=== PATIENT | female | born 1995 | race Caucasian/White ===

== ENCOUNTER 2017-01-25 19:15 | Emergency (ER) | payer BC ==
[2017-01-25 19:19] VITALS: BP 151/98; PULSE 57; TEMP 98.6; BMI 28.1
--- NOTE | 2017-01-25 19:53 | PDOC ---
History of Present Illness - General History Source: Patient Exam Limitations: No Limitations - History of Present Illness Initial Comments: 01/25/17 20:20 The patient is a 21 year old female, with no significant past medical history, who presents to the emergency department with chest pain, shortness of breath, headache and nausea onset yesterday. She reports that she went to urgent care and had blood work done, which revealed a positive D-dimer, She describes her chest pain as mild, without radiation. She notes that her pain is exacerbated when she takes a deep breath. She describes her headache as localized in the front of her headache, ranging from mild to moderate, without radiation or modifying factors. She denies any recent travel or control use. She reports that her mother has a history of migraines. The patient denies dizziness, fever, chills, nausea, vomit, diarrhea and constipation. Denies dysuria, frequency, urgency and hematuria. LMP: 3 weeks ago and regular Allergies: None Past surgical history: None reported Social history: Social alcohol use. No tobacco or drug use reported <Teddy Richards - Last Filed: 01/25/17 20:20> <Bri Thomas - Last Filed: 01/26/17 04:46> - General Chief Complaint: Chest Pain Stated Complaint: chest pain/sob Time Seen by Provider: 01/25/17 19:17 Past History <Teddy Richards - Last Filed: 01/25/17 20:20> - Past Medical History Other medical history: denies - Psycho/Social/Smoking Cessation Hx Anxiety: No Suicidal Ideation: No Smoking History: Never smoked Hx Alcohol Use: Yes Drug/Substance Use Hx: No Substance Use Type: Alcohol <Bri Thomas - Last Filed: 01/26/17 04:46> - Past Medical History Allergies/Adverse Reactions: Allergies Allergy/AdvReac Type Severity Reaction Status Date / Time No Known Allergies Allergy Verified 01/25/17 19:16 Home Medications: Ambulatory Orders NK [No Known Home Medication] 01/25/17 Review of Systems - Review of Systems Able to Perform ROS?: Yes Comments:: 01/25/17 20:20 GENERAL/CONSTITUTIONAL: No fever or chills. No weakness. HEAD, EYES, EARS, NOSE AND THROAT: No change in vision. No ear pain or discharge. No sore throat. CARDIOVASCULAR: (+) Chest pain and shortness of breath RESPIRATORY: No cough, wheezing, or hemoptysis. GASTROINTESTINAL: No nausea, vomiting, diarrhea or constipation. GENITOURINARY: No dysuria, frequency, or change in urination. MUSCULOSKELETAL: No joint or muscle swelling or pain. No neck or back pain. SKIN: No rash NEUROLOGIC: (+) Headache. No vertigo, loss of consciousness, or change in strength/sensation. ENDOCRINE: No increased thirst. No abnormal weight change HEMATOLOGIC/LYMPHATIC: No anemia, easy bleeding, or history of blood clots. ALLERGIC/IMMUNOLOGIC: No hives or skin allergy. <Teddy Richards - Last Filed: 01/25/17 20:20> *Physical Exam - Vital Signs Last Vital Signs Temp Pulse Resp BP Pulse Ox 98.6 F 57 L 18 151/98 100 01/25/17 19:16 01/25/17 19:16 01/25/17 19:16 01/25/17 19:16 01/25/17 19:16 - Physical Exam Comments: 01/25/17 20:21 GENERAL: Awake, alert, and fully oriented, in no acute distress HEAD: No signs of trauma, normocephalic, atraumatic EYES: PERRLA, EOMI, sclera anicteric, conjunctiva clear ENT: Auricles normal inspection, hearing grossly normal, nares patent, oropharynx clear without exudates. Moist mucosa NECK: Normal ROM, supple, no lymphadenopathy, JVD, or masses LUNGS: No distress, speaks full sentences, clear to auscultation bilaterally HEART: Regular rate and rhythm, normal S1 and S2, no murmurs, rubs or gallops, peripheral pulses normal and equal bilaterally. ABDOMEN: Soft, nontender, normoactive bowel sounds. No guarding, no rebound. No masses EXTREMITIES: Normal inspection, Normal range of motion, no edema. No clubbing or cyanosis. NEUROLOGICAL: Cranial nerves II through XII grossly intact. Normal speech, normal gait, no focal sensorimotor deficits SKIN: Warm, Dry, normal turgor, no rashes or lesions noted. <Teddy Richards - Last Filed: 01/25/17 20:20> - Vital Signs Last Vital Signs Temp Pulse Resp BP Pulse Ox 98.6 F 57 L 18 151/98 100 01/25/17 19:16 01/25/17 19:16 01/25/17 19:16 01/25/17 19:16 01/25/17 19:16 <Bri Thomas - Last Filed: 01/26/17 04:46> ED Treatment Course - LABORATORY CBC & Chemistry Diagram: 01/25/17 19:50 01/25/17 19:45 <Teddy Richards - Last Filed: 01/25/17 20:20> - LABORATORY CBC & Chemistry Diagram: 01/25/17 19:50 01/25/17 19:45 <Bri Thomas - Last Filed: 01/26/17 04:46> Medical Decision Making - Medical Decision Making Documentation has been prepared under my direction and personally reviewed by me in its entirety. I attest that this documented accurately reflects all work, treatment, procedures and medical decision making performed by me. As noted above, this 21-year-old woman was referred here from urgent care Center with a one-day history of mild pleuritic chest pain. D-dimer was performed at the urgent care center and was reportedly positive. She was referred here Patient is otherwise healthy and exam today is normal. D-dimer was repeated as well as CBC and comprehensive chemistry profile. D-dimer is less than 200. White blood cell count is mildly elevated at 11,000 but differential is normal and no other abnormalities are evident on the laboratory evaluation. Results discussed with the patient. She will be discharged with instructions to return to the emergency room if she has any persistent severe symptoms. <Bri Thomas - Last Filed: 01/26/17 04:46> *DC/Admit/Observation/Transfer - Attestations Scribe Attestion: 01/25/17 20:21 Documentation prepared by Teddy Richards, acting as medical staff assistant for Bri Thomas MD <Teddy Richards - Last Filed: 01/25/17 20:20> <Bri Thomas - Last Filed: 01/26/17 04:46> Diagnosis at time of Disposition: Atypical chest pain - Discharge Dispostion Disposition: HOME Condition at time of disposition: Stable - Patient Instructions Printed Discharge Instructions: DI for Atypical Chest Pain Additional Instructions: rest drink plenty of fluids ibuprofen/acetaminophen/naproxen as needed for pain Return here if you have severe, persistent pain or shortness of breath Follow-up with general medical doctor within the next week - Post Discharge Activity Work/School Note: Back to Work
[2017-01-25 20:12] LABS: URINE APPEARANCE Clear; URINE BILIRUBIN Negative (NEGATIVE); URINE GLUCOSE (UA) Negative (NEGATIVE); URINE KETONE Negative (NEGATIVE); URINE NITRITE Negative (NEGATIVE); URINE PROTEIN Negative (NEGATIVE); URINE UROBILINOGEN 0.2 E.U/dl (0.2-1.0)
[2017-01-25 20:17] LABS: BASOPHIL 4.2 % (0-2.0); EOSINOPHIL 0.7 % (0-4.5); MCHC 33.6 g/dl (32.0-36.0); MEAN CELL VOLUME 86.4 fl (80-96); MEAN PLT VOLUME 10.5 fl (7.5-11.1); NEUTROPHILS 66.7 % (42.8-82.8); PLATELET COUNT 308 K/MM3 (134-434); RDW 12.9 % (11.6-15.6)
[2017-01-25 20:21] LABS: URINE BLOOD TRACE (NEGATIVE); URINE COLOR YELLOW; URINE LEUK ESTERASE 1+ (NEGATIVE)
[2017-01-25 20:21] LABS: PROTHROMBIN TIME (PATIENT) 11.2 SEC (10.2-13.0)
[2017-01-25 20:40] LABS: URINE BACTERIA 1+ /hpf (NEGATIVE); URINE RBC 0-3 /hpf (0-3)
[2017-01-25 20:55] LABS: ALBUMIN 4.7 g/dl (3.5-5.0); ALK PHOS 78 U/L (32-92); ANION GAP 7 (8-16); BILIRUBIN,TOTAL 0.6 mg/dl (0.2-1.0); CALCIUM 9.6 mg/dl (8.4-10.2); CO2 24 mmol/L (22-28); CPK(DFH) 75 IU/L (26-140); CREATININE 0.7 mg/dl (0.6-1.3); GLUCOSE,RANDOM 99 mg/dl (74-106); SGOT/AST 17 U/L (10-42); SGPT/ALT 17 U/L (10-40); TOT PROT 7.9 g/dl (6.4-8.3)
[2017-01-25 21:02] LABS: COCKROFT - GAULT NT
[2017-01-25 21:27] LABS: TROPONIN I (DFP) < 0.03 ng/ml (0.03-0.50)
--- NOTE | 2017-01-27 14:41 | EKG ---
Test Reason : Blood Pressure : / mmHG Vent. Rate : 063 BPM Atrial Rate : 063 BPM P-R Int : 144 ms QRS Dur : 096 ms QT Int : 396 ms P-R-T Axes : 070 069 036 degrees QTc Int : 405 ms NORMAL SINUS RHYTHM WITH SINUS ARRHYTHMIA NORMAL ECG NO PREVIOUS ECGS AVAILABLE Confirmed by HIRAL MCKEON MD ([id number]) on 01/27/2017 2:41:15 PM Referred By: FRANCIS Confirmed By:HIRAL MCKEON MD
== END 2017-01-25 23:13 | disposition home or self-care (01) ==
LOC: SUPCPDRO 19:15 → FER 19:15
DX: R07.89 Other chest pain (principal)
CPT/HCPCS: 36415; 80053; 81003; 81015; 82550; 84484; 84703; 85025; 85379; 85610; 93005; 99284-25